=== PATIENT | male | born 1995 | race Caucasian/White ===

== ENCOUNTER 2018-06-05 17:59 | Emergency (ER) | payer OTHER, SELFPAY ==
[2018-06-05 18:03] VITALS: BP 136/78; PULSE 88; RESP 20; TEMP 37; O2SAT 100
--- NOTE | 2018-06-05 18:38 | ED.ALLEREA ---
HPI - Allergic Reaction <SAI Chambers - Last Filed: 06/05/18 22:14> General Chief complaint: Allergic Reaction Stated complaint: ALLERGIC REACTION,SAYS LIPS SWELLING Time Seen by Provider: 06/05/18 18:38 History of Present Illness HPI narrative: One 2-year-old healthy male here for complaint of having swelling to his upper lip after eating some blocking fish about an hour prior to arrival. During time of exam he reports that his symptoms have resolved. He denies any stool swelling of his tongue. He does not believe that he had any swelling in his throat. No shortness of breath. No distress. He denies having a prior food allergies or anaphylaxis history. He denies any other concerns or complaints. MD complaint: facial swelling Related Data Previous Rx's Medication Instructions Recorded cetirizine 10 mg PO DAILY #5 tab 06/05/18 prednisone 40 mg PO DAILY #8 tab 06/05/18 Allergies Allergy/AdvReac Type Severity Reaction Status Date / Time amoxicillin [AMOXICILLIN] Allergy Unknown Unverified 03/12/18 12:19 Penicillins [PENICILLINS] Allergy Unknown Unverified 03/12/18 12:19 Review of Systems <SAI Chambers - Last Filed: 06/05/18 22:14> Constitutional Denies chills, Denies fever(s), Denies lethargy and Denies weakness Eyes Denies change in vision, Denies eye discharge, Denies irritation and Denies loss of vision Comments: ENT Comments: Swelling to upper lip after eating blackened fish. Cardiovascular Denies chest pain, Denies irregular heart rhythm, Denies lightheadedness, Denies palpitations, Denies dyspnea, Denies dyspnea on exertion and Denies orthopnea Respiratory Denies cough, Denies dyspnea, Denies dyspnea on exertion and Denies wheezing Gastrointestinal Gastrointestinal: Denies abdominal pain, Denies change in bowel habits, Denies diarrhea, Denies nausea and Denies vomiting Genitourinary Denies hematuria, Denies flank pain, Denies urinary incontinence and Denies urinary urgency Musculoskeletal Denies back pain, Denies muscle weakness, Denies numbness and Denies tingling Integumentary/Breasts Denies pruritus, Denies erythema, Denies rash and Denies wounds Neurologic Denies confusion, Denies loss of vision, Denies numbness, Denies tingling and Denies weakness Psychiatric Denies anxiety, Denies confusion, Denies depression, Denies homicidal ideation and Denies suicidal ideation Endocrine Denies palpitations Hematologic/Lymphatic Denies easy bruising Allergic/Immunologic Denies wheezing Exam <SAI Chambers - Last Filed: 06/05/18 22:14> Initial Vital Signs Initial Vital Signs: Vital Signs Temperature 98.6 F 06/05/18 18:03 Pulse Rate 88 06/05/18 18:03 Respiratory Rate 20 06/05/18 18:03 Blood Pressure 136/78 H 06/05/18 18:03 Pulse Oximetry 100 06/05/18 18:03 Const General: cooperative and well developed Nutritional Appearance: well nourished Orientation: alert, awake, oriented x3 and not confused HENMT Head: normocephalic and atraumatic Nose: external nose normal and nasal discharge Face and sinus: sinuses nontender, face symmetric, no sinus tenderness and dry mucous membranes Mouth: oral mucosae normal, oropharynx normal and moist mucous membranes Teeth and gingiva: dentition normal Throat: tonsils normal and uvula midline Eyes General: appearance normal, both eyes and all related structures Eyelids: eyelids normal Conjunctivae: conjunctivae normal Sclera: sclerae normal Pupils: PERRL EOM: EOM intact bilaterally Neck Neck: normal visual inspection, trachea midline, No lymphadenopathy, No midline deformity and No JVD Lymphatic: No lymphedema Resp Effort & Inspection: normal respiratory effort, able to speak in complete sentences, no respiratory distress and no use of accessory muscles Auscultation: clear to auscultation bilaterally, no rales, no rhonchi and no wheezes Cardio Rate: regular rate Rhythm: regular rhythm Heart Sounds: no click, no gallops, no murmurs and no rubs Pulses: normal peripheral pulses Skin General: no rashes or lesions noted, No jaundice and No petechiae Neuro General: alert, oriented x3, gait normal and no focal motor deficits Speech: speech normal <Gibson Fox MD - Last Filed: 06/06/18 05:10> Initial Vital Signs Initial Vital Signs: Vital Signs Temperature 98.6 F 06/05/18 18:03 Pulse Rate 88 06/05/18 18:03 Respiratory Rate 20 06/05/18 18:03 Blood Pressure 136/78 H 07/05/18 18:03 Pulse Oximetry 100 06/05/18 18:03 Course <SAI Chambers - Last Filed: 06/05/18 22:14> Vital Signs - 8 hr 06/05/18 18:03 06/05/18 19:28 Temperature 98.6 F Pulse Rate 88 68 Respiratory Rate 20 18 Blood Pressure 136/78 H 106/67 Pulse Oximetry 100 100 <Gibson Fox MD - Last Filed: 06/06/18 05:10> Vital Signs - 8 hr 06/05/18 18:03 06/05/18 19:28 Temperature 98.6 F Pulse Rate 88 68 Respiratory Rate 20 18 Blood Pressure 136/78 H 106/67 Pulse Oximetry 100 100 MDM - Allergic Reaction <SAI Chambers - Last Filed: 06/05/18 22:14> MDM Narrative Medical decision making narrative: Normal exam no acute distress. Symptoms resolved prior to exam. Will treat for allergic response due to unknown trigger with antihistamine and short course of steroids. Patient encouraged to follow up with primary care provider next week for re-evaluation. For any worsening symptoms return to the emergency room.. Discharge Plan Departure Patient Disposition: Home, Self-Care Clinical Impression: Allergic reaction Discharge Date/Time: 06/05/18 19:29 Interventions: ED Discharge Assessment Last Done: 06/05/18 19:28 Instructions: Food Allergies and Sensitivities (Alternative Therapy) Activity Restrictions/Additional Instructions: Normal exam today no signs of allergic response is seen on exam due to symptoms resolving prior to exam. Is possible this was caused by a mild allergic reaction due to unknown trigger. To ensure that no further symptoms UR placed on short course of steroids and also an antihistamine use as directed. Follow up with her primary care provider. For any worsening symptoms return to the emergency room. Prescriptions: New cetirizine 10 mg tablet 10 mg PO DAILY Qty: 5 RF: 0 prednisone 20 mg tablet 40 mg PO DAILY Qty: 8 RF: 0 Referrals: Autumn Ram MD [Primary Care Provider] - <Gibson Fox MD - Last Filed: 06/06/18 05:10> Cosign ED Attending Tariqature Attestation: I was available in the ER for consultation and assistance if needed. I agree with the content of the note, and the discharge plan.
--- NOTE | 2018-06-05 18:40 | PC.NURSE ---
pt reported, had seafood with spice , about one hour ago, developed lip swelling, unsure if it was allergic sxs or just from the spice, pt has been drinking water and feeling fine now. denies taking any benadryl, denies pruritus, denies rash, no respiratory distress. breath sound clear thought out, pt drinking water and tolerating well, no vomiting.
[2018-06-05 19:28] VITALS: BP 106/67; PULSE 68; RESP 18; O2SAT 100
== END 2018-06-05 19:29 | disposition home or self-care (01) ==
PROVIDERS: Emergency Provider Nurse Practitioner Family; PCP Family Medicine
DX: T78.40XA Allergy, unspecified, initial encounter (principal)
CPT/HCPCS: 99282; 99283